=== PATIENT | female | born 1995 | race Caucasian/White ===

== ENCOUNTER 2025-03-26 15:48 | Emergency (ER) | payer OTHER ==
[~2025-03-26] VITALS: Ht 157.4 cm; Wt 68.0 kg
== END 2025-03-26 18:37 | disposition home or self-care (01) ==
LOC: ED 15:48
DX: S16.1XXA Strain of muscle, fascia and tendon at neck level, initial encounter (principal); S60.011A Contusion of right thumb without damage to nail, initial encounter; V89.2XXA Person injured in unspecified motor-vehicle accident, traffic, initial encounter; Y93.89 Activity, other specified; Y92.89 Other specified places as the place of occurrence of the external cause; Y99.8 Other external cause status